=== PATIENT | female | born 1990 | race Caucasian/White ===

== ENCOUNTER 2017-08-31 08:05 | Emergency (ER) | payer BC ==
[~2017-08-31] VITALS: Ht 160 cm; Wt 101.6 kg
[~2017-08-31 08:05] MED LIST: AZIT250T6 PO; MEDR150D3 IM
[2017-08-31 08:15] VITALS: BP 125/55
--- NOTE | 2017-08-31 08:52 | PHYS DOC ---
Past History Past Medical History: No Pertinent History Past Surgical History: Tonsillectomy Smoking: Non-smoker Alcohol Use: None Drug Use: None Adult General Chief Complaint Chief Complaint: SORE THROAT HPI HPI Patient is a 27 year old female who presents with sore throat & nasal congestion. The patient reports 4 day history of symptoms. She reports nasal congestion, rhinorrhea, bilateral ear pain, sore throat, painful swallowing, dry cough. Denies fevers, headache, neck stiffness, chest pain, shortness of breath, abdominal pain, nausea, vomiting. Previously healthy, history of tonsillectomy. Known exposure to strep throat this week. Works as a [employer] LE[employer]. She had a flu vaccine this season. Review of Systems Review of Systems Constitutional: Denies fever or chills Eyes: Denies drainage HENT: Reports nasal congestion & sore throat Respiratory: Reports cough, denies shortness of breath Cardiovascular: Denies chest pain or edema GI: Denies abdominal pain, nausea, vomiting Musculoskeletal: Denies back pain or joint pain Integument: Denies rash Neurologic: Denies headache Allergies Allergies Allergies Coded Allergies Type Severity Reaction Last Updated Verified No Known Drug Allergies 04/06/16 No Physical Exam Physical Exam Constitutional: obese, no acute distress, non-toxic appearance. HENT: Normocephalic, atraumatic, bilateral external ears normal, TMs clear bilaterally, oropharynx moist, posterior oropharynx mild erythema without tonsillar enlargement/exudate, airway patent, nose normal. Eyes: conjunctiva normal, no discharge. Neck: supple, no stridor. no meningismus, no cervical lymphadenopathy. Cardiovascular: RRR, no murmurs, no edema. Lungs & Thorax: LCTAB, no wheezing, no respiratory distress. Abdomen: soft, nontender, nondistended. Skin: Warm, dry, no erythema, no rash. Back: No tenderness. Extremities: No deformity Neurologic: Alert and oriented X 3 EKG EKG [] Radiology/Procedures Radiology/Procedures [] Course & Med Decision Making Course & Med Decision Making Pertinent Labs and Imaging studies reviewed. (See chart for details) The patient presents with upper respiratory illness. Rapid strep was negative. Vitals are stable & patient is well appearing. Recommend supportive care for viral URI. Encourage rest, hydration, tylenol/ibuprofen for pain or fever, throat lozenges, continue mucinex, afrin PRN not to be used more than 2 days. Come back for severe shortness of breath, uncontrolled vomiting, any otherwise worsening condition. Discharged home in stable condition. [] Dragon Disclaimer Dragon Disclaimer This chart was dictated in whole or in part using Voice Recognition software in a busy, high-work load, and often noisy Emergency Department environment. It may contain unintended and wholly unrecognized errors or omissions. Departure Departure: Impression: Primary Impression: Upper respiratory infection Disposition: HOME, SELF-CARE Condition: STABLE Referrals: LAURA SCHULTE (PCP) Patient Instructions: Upper Respiratory Infection, Adult, [id number] Additional Instructions: You were seen in the emergency department today for upper respiratory infection. The rapid strep test was negative. This is likely caused by a virus & there is no specific treatment. Please rest, drink fluids, take tylenol or ibuprofen for pain or fever, use a humidifier, continue mucinex, use throat lozenges for sore throat, try afrin for up to 2 days for nasal congestion. Follow up with primary care doctor if needed. Come back for severe shortness of breath, uncontrolled vomiting, any otherwise worsening condition. FAY GARCIA MD Aug 31, 2017 08:52
== END 2017-08-31 08:58 | disposition home or self-care (01) ==
LOC: ER 08:05
DX: J06.9 Acute upper respiratory infection, unspecified (principal); H92.03 Otalgia, bilateral
CPT/HCPCS: 87070; 87880; 99283

== ENCOUNTER 2017-11-25 15:35 | Emergency (ER) | payer BC, OTHER ==
[~2017-11-25] VITALS: Ht 157.5 cm; Wt 95.3 kg
[2017-11-25] MEDS ORDERED: ONDANSETRON ODT 4 MG TAB.RAPDIS PO ONE (16:15)
[2017-11-25] MEDS ORDERED: PENICILLIN G BENZATHINE LA 1,200,000 UNIT/2 ML DISP.SYRIN. IM ONE (16:30)
[2017-11-25 16:34] LABS: INFLUENZA A PATIENT NEGATIVE (NEGATIVE); INFLUENZA B PATIENT NEGATIVE (NEGATIVE)
[2017-11-25 16:45] VITALS: BP 136/77
--- NOTE | 2017-11-25 17:00 | PHYS DOC ---
Past History Past Medical History: No Pertinent History Past Surgical History: Tonsillectomy Smoking: Non-smoker Alcohol Use: None Drug Use: None Adult General Chief Complaint Chief Complaint: sore throat and fever HPI HPI 27-year-old female patient complaining of sore throat and subjective fever and chills and nasal congestion and body aches for the last 4 days with nausea and dry heaves without diarrhea. Patient denies abdominal pain and urinary symptom. Patient states she has sick contacts at work. Review of Systems Review of Systems Constitutional: As fever and chills Eyes: Denies change in visual acuity, redness, or eye pain [] HENT: Nasal congestion and sore throat] Respiratory: Denies cough or shortness of breath [] Cardiovascular: No additional information not addressed in HPI [] GI: Denies abdominal pain, reports nausea and vomiting Musculoskeletal: Denies back pain or joint pain [] Integument: Denies rash or skin lesions [] Neurologic: Denies headache, focal weakness or sensory changes [] Endocrine: Denies polyuria or polydipsia [] All other systems were reviewed and found to be within normal limits, except as documented in this note. Current Medications Current Medications Current Medications Medications (Trade) Dose Ordered Sig/Bhavana Start Time Stop Time Status Last Admin Dose Admin Ondansetron HCl (Zofran Odt) 4 mg 1X ONCE 11/25/17 16:15 11/25/17 16:16 DC 11/25/17 16:20 4 MG Penicillin G Benzathine (Bicillin L-A) 1,200,000 unit 1X ONCE 11/25/17 16:30 11/25/17 16:31 DC 11/25/17 16:41 1,200,000 UNIT Allergies Allergies Allergies Coded Allergies Type Severity Reaction Last Updated Verified No Known Drug Allergies 04/06/16 No Physical Exam Physical Exam Constitutional: Well developed, well nourished, mild distress, non-toxic appearance. [] HENT: Normocephalic, atraumatic, bilateral external ears normal, pharyngeal erythema and edema and exudate ,oropharynx moist, nose normal. [] Eyes: PERRLA, EOMI, conjunctiva normal, no discharge. [] Neck: Normal range of motion, no tenderness, supple, no stridor. [] Cardiovascular:Heart rate regular rhythm, no murmur [] Lungs & Thorax: Bilateral breath sounds clear to auscultation [] Abdomen: Bowel sounds normal, soft, no tenderness, no masses, no pulsatile masses. [] Skin: Warm, dry, no erythema, no rash. [] Back: No tenderness, no CVA tenderness. [] Extremities: No tenderness, no cyanosis, no clubbing, ROM intact, no edema. [] Neurologic: Alert and oriented X 3, normal motor function, normal sensory function, no focal deficits noted. [] Psychologic: Affect normal, judgement normal, mood normal. [] Current Patient Data Lab Results Laboratory Tests Test 11/25/17 16:00 Influenza Type A (Rapid) Negative (NEGATIVE) Influenza Type B (Rapid) Negative (NEGATIVE) Group A Streptococcus Rapid Positive (NEGATIVE) EKG EKG [] Radiology/Procedures Radiology/Procedures [] Course & Med Decision Making Course & Med Decision Making Pertinent Labs reviewed. (See chart for details) Evaluation of patient in ER showed 27-year-old female patient with complaining of sore throat and upper respiratory symptoms for 4 days. Patient had positive for strep and negative flu test and asking for injection of antibiotic. 1 dose of Bicillin was given and plan to discharge patient home with diagnosis of strep pharyngitis. [] Dragon Disclaimer Dragon Disclaimer This electronic medical record was generated, in whole or in part, using a voice recognition dictation system. Departure Departure: Impression: Primary Impression: Acute streptococcal pharyngitis Disposition: 01 HOME, SELF-CARE (at 1658) Condition: IMPROVED Referrals: LAURA SCHULTE (PCP) Patient Instructions: Strep Throat, Group A Streptococcus Additional Instructions: Take [id number] Tylenol or ibuprofen as needed for fever and pain Drink plenty of liquids Return to emergency room if not getting better GIRMA MARTINEZ MD Nov 25, 2017 17:00
[2017-11-25] MEDS ORDERED: TRAM-48 PO (17:01)
== END 2017-11-25 17:10 | disposition home or self-care (01) ==
LOC: ER 15:35
DX: J02.0 Streptococcal pharyngitis (principal)
CPT/HCPCS: 87804; 87880; 96372; 99284; J0561; Q0162

== ENCOUNTER 2017-12-23 01:32 | Emergency (ER) | payer SELFPAY ==
[~2017-12-23] VITALS: Ht 162.6 cm; Wt 96.2 kg
[2017-12-23 01:32] VITALS: BP 117/69
[~2017-12-23 01:32] MED LIST changes: +TRAM-48 PO
--- NOTE | 2017-12-23 01:39 | PHYS DOC ---
General Chief Complaint: dental pain Stated Complaint: DENTAL PAIN Time Seen by MD: 01:38 Source: patient Exam Limitations: no limitations Problems: History of Present Illness Initial Comments 27-year-old female comes to the ED complaining of dental pain. Patient states that she is known she has a cavity in her left upper molar for some time but she hasn't had any insurance benefits. In the past ibuprofen as helped her through the discomfort however tonight symptoms have become so severe they're preventing her from sleep. She denies any jaw pain or gum swelling no headache fever chills or body aches. Timing/Duration: gradual Severity: severe Location: dental Prearrival Treatment: over the counter meds Modifying Factors: improves with other Associated Symptoms: tooth pain Allergies: Coded Allergies: No Known Drug Allergies (Unverified , 04/06/16) Past Medical History Medical History: no pertinent history Surgical History: tonsillectomy Social History Smoker: non-smoker Alcohol: none Drugs: none Constitutional: denies chills, denies fever, denies malaise Ears: denies dizziness, denies pain, denies tinnitus Nose: denies clots, denies congestion Mouth: see HPI Throat: denies pain, denies swelling, denies discharge, denies neck stiffness Respiratory: denies cough, denies shortness of breath Cardiovascular: denies chest pain, denies palpitations Gastrointestinal: denies nausea, denies vomiting Musculoskeletal: denies back pain, denies joint swelling, denies neck pain Physical Exam General Appearance: no apparent distress Eyes: bilateral eye normal inspection, bilateral eye PERRL, bilateral eye EOMI Nose: normal inspection Mouth/Throat: other (first left upper molar with lateral erosion, no gingival swelling no bony tenderness no discharge) Neck: non-tender, supple Cardiovascular/Respiratory: normal peripheral pulses, no respiratory distress 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 Patient was advised that she must follow-up with a dentist and that dental pain may not be repeatedly treated in the emergency department. Departure Time of Disposition: 01:46 Disposition: 01 HOME, SELF-CARE Diagnosis: dental caries Condition: GOOD Patient Instructions: Dental Caries-Brief Additional Instructions: Listerine gargles 3 times daily after brushing and flossing. [id number] ibuprofen for baseline discomfort. Prescription: Amoxicillin, [place] 5 mg quantity 20 Take medications with food As discussed you must follow-up with a dentist for resolution of this condition , we cannot treat the same condition repeatedly in the emergency department. RN Will give you a list of dental clinics which may benefit you until you get insurance. Call tomorrow to schedule appointment. Return to ED with new or changing symptoms. MARINA YIN DO Dec 23, 2017 01:39
[2017-12-23] MEDS ORDERED: AMOXICILLIN 250 MG CAPSULE PO ONE (01:45)
[2017-12-23] MEDS ORDERED: HYDROcodone/APAP 7.5/325MG 1 TAB TABLET PO ONE (01:45)
[2017-12-23] MEDS ORDERED: AMOX875T PO (01:46)
[2017-12-23] MEDS ORDERED: HYDR-971 PO (01:46)
== END 2017-12-23 01:55 | disposition home or self-care (01) ==
LOC: ER 01:32
DX: K02.9 Dental caries, unspecified (principal)
CPT/HCPCS: 99283

== ENCOUNTER → 2018-11-14 | Outpatient (CLI) | payer OTHER ==
[~2018-11-14] MED LIST changes: +AMOX875T PO; +HYDR-3165 PO
--- NOTE | 2018-11-14 10:48 | RAD ---
Right upper quadrant abdominal ultrasound, 11/14/2018: HISTORY: Right upper quadrant pain The gallbladder is within normal limits in size. There is no sonographic evidence of cholelithiasis. The gallbladder coulter are not thickened. The common hepatic duct is of normal caliber. There is no evidence of a hepatic mass. The hepatic echogenicity is generally increased, most commonly due to fatty change. The liver is at the upper limits of normal in size. The visualized portions of the pancreas and right kidney are unremarkable. IMPRESSION: 1. Increased hepatic echogenicity suggesting fatty change. 2. No gallbladder abnormality is detected. Electronically signed by: David Campo MD (11/14/2018 10:43 AM) [facility]
== END | disposition home or self-care (01) ==
LOC: MERGE 09:23 → US 09:23
PROVIDERS: ATTEND Physician Assistant
DX: R10.11 Right upper quadrant pain (principal)
CPT/HCPCS: 76705

== ENCOUNTER → 2019-01-03 | Outpatient (CLI) | payer OTHER | END | disposition home or self-care (01) | LOC: LAB 17:03 | PROVIDERS: ATTEND Advanced Practice Midwife | DX: N92.6 Irregular menstruation, unspecified (principal); O20.0 Threatened abortion | CPT/HCPCS: 36415; 84144; 84702 ==

== ENCOUNTER 2019-04-18 20:45 | Emergency (ER) | payer OTHER ==
[~2019-04-18] VITALS: Ht 162.6 cm; Wt 100.7 kg
[2019-04-18 20:59] VITALS: BP 121/68
--- NOTE | 2019-04-18 21:05 | ED.ADGEN ---
Past History Past Medical History: No Pertinent History Past Surgical History: Tonsillectomy Smoking: Non-smoker Alcohol Use: None Drug Use: None Adult General Chief Complaint Chief Complaint ".. I fell really hard.. I slipped in the mud.. and fell on my back really hard.. I am not worried about my pain.. but I am 20 weeks ... I had a miscarry with my last .. I am 20 weeks.. and really worried..." HPI HPI Patient is a 28 year old female who presents with above hx and complaints of low back pain and lower pelvic discomfort after a fall from standing position. Patient states she slipped on the blood which was the cause of her fall. Patient is extremely concerned that she may have started miscarriage. Patient has history of 3 para 2 with 1 miscarriage last February. Patient denies history of STDs. On 1 lifetime sex partner. No active bleeding currently. Does have a follow-up with her primary care for ultrasound. Patient has yet has not had an ultrasound of this . Review of Systems Review of Systems Constitutional: Denies fever or chills [] Eyes: Denies change in visual acuity, redness, or eye pain [] HENT: Denies nasal congestion or sore throat [] Respiratory: Denies cough or shortness of breath [] Cardiovascular: No additional information not addressed in HPI [] GI: Complaints of some pelvic abdominal pain, nausea. No, vomiting, bloody stools or diarrhea []no vaginal bleeding. : Denies dysuria or hematuria [] Musculoskeletal: Complains of low back pain or joint pain [] Integument: Denies rash or skin lesions [] Neurologic: Denies headache, focal weakness or sensory changes [] Endocrine: Denies polyuria or polydipsia [] All other systems were reviewed and found to be within normal limits, except as documented in this note. Family History Family History Noncontributory Current Medications Current Medications Current Medications Medications (Trade) Dose Ordered Sig/Bhavana Start Time Stop Time Status Last Admin Dose Admin Lactated Ringer's 1,000 ml @ 1,000 mls/hr Q1H 04/18/19 21:30 04/18/19 22:29 DC 04/18/19 21:56 1,000 MLS/HR Ondansetron HCl (Zofran) 4 mg 1X ONCE 04/18/19 21:30 04/18/19 21:31 DC Allergies Allergies Allergies Coded Allergies Type Severity Reaction Last Updated Verified No Known Drug Allergies 04/06/16 No Physical Exam Physical Exam Constitutional: Moderate acute emotional distress, non-toxic appearance. [] HENT: Normocephalic, atraumatic, bilateral external ears normal, oropharynx moist, no oral exudates, nose normal. [] Eyes: PERRLA, EOMI, conjunctiva normal, no discharge. [] Neck: Normal range of motion, no tenderness, supple, no stridor. [] Cardiovascular:Heart rate regular rhythm, no murmur [] Lungs & Thorax: Bilateral breath sounds equal apex auscultation [] Abdomen: Bowel sounds normal, soft, lower pelvic disc comfort or tenderness, gravid, no masses, no pulsatile masses. [] Vaginal exam office is closed. No active bleeding. No cervical motion tenderness. Rectal hard stool. heart rate at 150s Skin: Warm, dry, no erythema, no rash. [] Back: No tenderness, no CVA tenderness. [] Extremities: No tenderness, no cyanosis, no clubbing, ROM intact, no edema. [] Neurologic: Alert and oriented X 3, normal motor function, normal sensory function, no focal deficits noted. [] Psychologic: Affect anxious, judgement normal, mood normal. [] Current Patient Data Vital Signs Vital Signs Date Time Temp Pulse Resp B/P (MAP) Pulse Ox O2 Delivery O2 Flow Rate FiO2 04/18/19 20:59 98.7 90 16 98 Room Air Lab Results Laboratory Tests Test 04/18/19 21:25 04/18/19 21:45 Urine Collection Type Unknown Urine Color Yellow Urine Clarity Hazy Urine pH 6.5 Urine Specific [place] 1.020 Urine Protein Neg (NEG-TRACE) Urine Glucose (UA) Neg mg/dL (NEG) Urine Ketones (Stick) Trace mg/dL (NEG) Urine Blood Neg (NEG) Urine Nitrite Neg (NEG) Urine Bilirubin Neg (NEG) Urine Urobilinogen Dipstick 1 mg/dL (0.2 mg/dL) Urine Leukocyte Esterase Neg (NEG) Urine RBC 0 /HPF (0-2) Urine WBC Occ /HPF (0-4) Urine Squamous Epithelial Cells Occ /LPF Urine Bacteria 0 /HPF (0-FEW) Urine Mucus Slight /LPF Urine Opiates Screen Neg (NEG) Urine Methadone Screen Neg (NEG) Urine Barbiturates Neg (NEG) Urine Phencyclidine Screen Neg (NEG) Urine Amphetamine/Methamphetamine Neg (NEG) Urine Benzodiazepines Screen Neg (NEG) Urine Cocaine Screen Neg (NEG) Urine Cannabinoids Screen Neg (NEG) Urine Ethyl Alcohol Neg (NEG) White Blood Count 11.4 x10^3/uL (4.0-11.0) H Red Blood Count 3.82 x10^6/uL (3.50-5.40) Hemoglobin 12.0 g/dL (12.0-15.5) Hematocrit 35.0 % (36.0-47.0) L Mean Corpuscular Volume 92 fL (79-100) Mean Corpuscular Hemoglobin 31 pg (25-35) Mean Corpuscular Hemoglobin Concent 34 g/dL (31-37) Red Cell Distribution Width 13.0 % (11.5-14.5) Platelet Count 247 x10^3/uL (140-400) Neutrophils (%) (Auto) 75 % (31-73) H Lymphocytes (%) (Auto) 19 % (24-48) L Monocytes (%) (Auto) 6 % (0-9) Eosinophils (%) (Auto) 0 % (0-3) Basophils (%) (Auto) 1 % (0-3) Neutrophils # (Auto) 8.5 x10^3uL (1.8-7.7) H Lymphocytes # (Auto) 2.1 x10^3/uL (1.0-4.8) Monocytes # (Auto) 0.7 x10^3/uL (0.0-1.1) Eosinophils # (Auto) 0.1 x10^3/uL (0.0-0.7) Basophils # (Auto) 0.1 x10^3/uL (0.0-0.2) Prothrombin Time 9.3 SEC (9.4-11.4) L Prothrombin Time INR 0.9 (0.9-1.1) PTT 28 SEC (23-33) Maternal Serum HCG Beta Subunit 07702 mIU/mL (0-6) H Sodium Level 139 mmol/L (136-145) Potassium Level 3.5 mmol/L (3.5-5.1) Chloride Level 105 mmol/L (98-107) Carbon Dioxide Level 23 mmol/L (21-32) Anion Gap 11 (6-14) Blood Urea Nitrogen 5 mg/dL (7-20) L Creatinine 0.5 mg/dL (0.6-1.0) L Estimated GFR (Cockcroft-Gault) 148.0 Glucose Level 82 mg/dL (70-99) Calcium Level 9.2 mg/dL (8.5-10.1) Total Bilirubin 0.2 mg/dL (0.2-1.0) Direct Bilirubin < 0.1 mg/dL (0.0-0.2) Aspartate Amino Transferase (AST) 13 U/L (15-37) L Alanine Aminotransferase (ALT) 21 U/L (14-59) Alkaline Phosphatase 58 U/L (46-116) Total Protein 6.7 g/dL (6.4-8.2) Albumin 2.9 g/dL (3.4-5.0) L Lipase 128 U/L (73-393) Microbiology 04/18/19 Wet Prep - Final, Complete Microbiology 04/18/19 Wet Prep - Final, Complete EKG EKG [] Radiology/Procedures Radiology/Procedures [][place] [address] IMAGING REPORT Signed PATIENT: ROSSY MARTI ACCOUNT: [id number] : 1990 LOCATION: ER AGE: 28 SEX: F EXAM STATUS: REG ER ORD. PHYSICIAN: ABIOLA PATRICK MD REASON: 20 WEEKS , FELL ON BACK, BACK PAIN PROCEDURE: PREG MORE THAN OR EQ TO 14 WKS Clinical indications: 20 weeks . Fell on back. Back pain. Findings: A single intrauterine fetus is seen in transverse position. heart rate is 147 beats per minute. BPD is 4.75 cm which equals 20 weeks 3 days. HC is 17.30 cm which equals 19 weeks 6 days. AC is 15.02 cm which equals 20 weeks 2 days. FL is 3.28 cm which equals 20 weeks 2 days. Average gestational age by ultrasound is 20 weeks 2 days +/- +/- 12 days with an EDC of September 03, 2019. Estimated weight is 0 lbs and 12 oz. The anatomy was not evaluated. A normal amount of amniotic fluid is evident. Cervical length is 8.6 cm. A grade 0 anterior placenta is seen. No placenta previa and no placenta abruptio is identified. The maternal ovaries are not visualized. Impression: Single IUP with approximate gestational age of 20 weeks 2 days. heart rate is 147 bpm. Electronically signed by: China Moore MD (04/18/2019 10:37 PM) [facility] DICTATED AND SIGNED BY: CHINA MOORE MD DATE: 04/18/192236 CC: ABIOLA PATRICK MD; LAURA SCHULTE ~ Course & Med Decision Making Course & Med Decision Making Pertinent Labs and Imaging studies reviewed. (See chart for details) Patient follow-up primary care. Patient have CAPTAIN ASSISTANT review all ultrasound completed tonight. Patient push fluids. Patient may take only Tylenol for discomfort. Patient return if any concerns. [] Final Impression Final Impression 1. Fall[] 2. IUP- 20w 2 days 3. Blood type is A+ 4. Beta hCG is 16,182 Dragon Disclaimer Dragon Disclaimer This electronic medical record was generated, in whole or in part, using a voice recognition dictation system. Discharge Summary Visit Information Final Diagnosis Problems Medical Problems: (1) Fall Status: Acute (2) Intrauterine Status: Acute Brief Hospital Course Allergies Allergies Coded Allergies Type Severity Reaction Last Updated Verified No Known Drug Allergies 04/06/16 No Vital Signs Vital Signs Date Time Temp Pulse Resp B/P (MAP) Pulse Ox O2 Delivery O2 Flow Rate FiO2 04/18/19 20:59 98.7 90 16 98 Room Air Lab Results Laboratory Tests Test 04/18/19 21:25 04/18/19 21:45 Urine Collection Type Unknown Urine Color Yellow Urine Clarity Hazy Urine pH 6.5 Urine Specific [place] 1.020 Urine Protein Neg (NEG-TRACE) Urine Glucose (UA) Neg mg/dL (NEG) Urine Ketones (Stick) Trace mg/dL (NEG) Urine Blood Neg (NEG) Urine Nitrite Neg (NEG) Urine Bilirubin Neg (NEG) Urine Urobilinogen Dipstick 1 mg/dL (0.2 mg/dL) Urine Leukocyte Esterase Neg (NEG) Urine RBC 0 /HPF (0-2) Urine WBC Occ /HPF (0-4) Urine Squamous Epithelial Cells Occ /LPF Urine Bacteria 0 /HPF (0-FEW) Urine Mucus Slight /LPF Urine Opiates Screen Neg (NEG) Urine Methadone Screen Neg (NEG) Urine Barbiturates Neg (NEG) Urine Phencyclidine Screen Neg (NEG) Urine Amphetamine/Methamphetamine Neg (NEG) Urine Benzodiazepines Screen Neg (NEG) Urine Cocaine Screen Neg (NEG) Urine Cannabinoids Screen Neg (NEG) Urine Ethyl Alcohol Neg (NEG) White Blood Count 11.4 x10^3/uL (4.0-11.0) Red Blood Count 3.82 x10^6/uL (3.50-5.40) Hemoglobin 12.0 g/dL (12.0-15.5) Hematocrit 35.0 % (36.0-47.0) Mean Corpuscular Volume 92 fL (79-100) Mean Corpuscular Hemoglobin 31 pg (25-35) Mean Corpuscular Hemoglobin Concent 34 g/dL (31-37) Red Cell Distribution Width 13.0 % (11.5-14.5) Platelet Count 247 x10^3/uL (140-400) Neutrophils (%) (Auto) 75 % (31-73) Lymphocytes (%) (Auto) 19 % (24-48) Monocytes (%) (Auto) 6 % (0-9) Eosinophils (%) (Auto) 0 % (0-3) Basophils (%) (Auto) 1 % (0-3) Neutrophils # (Auto) 8.5 x10^3uL (1.8-7.7) Lymphocytes # (Auto) 2.1 x10^3/uL (1.0-4.8) Monocytes # (Auto) 0.7 x10^3/uL (0.0-1.1) Eosinophils # (Auto) 0.1 x10^3/uL (0.0-0.7) Basophils # (Auto) 0.1 x10^3/uL (0.0-0.2) Prothrombin Time 9.3 SEC (9.4-11.4) Prothromb Time International Ratio 0.9 (0.9-1.1) Activated Partial Thromboplast Time 28 SEC (23-33) Maternal Serum HCG Beta Subunit 41082 mIU/mL (0-6) Sodium Level 139 mmol/L (136-145) Potassium Level 3.5 mmol/L (3.5-5.1) Chloride Level 105 mmol/L (98-107) Carbon Dioxide Level 23 mmol/L (21-32) Anion Gap 11 (6-14) Blood Urea Nitrogen 5 mg/dL (7-20) Creatinine 0.5 mg/dL (0.6-1.0) Estimated GFR (Cockcroft-Gault) 148.0 Glucose Level 82 mg/dL (70-99) Calcium Level 9.2 mg/dL (8.5-10.1) Total Bilirubin 0.2 mg/dL (0.2-1.0) Direct Bilirubin < 0.1 mg/dL (0.0-0.2) Aspartate Amino Transf (AST/SGOT) 13 U/L (15-37) Alanine Aminotransferase (ALT/SGPT) 21 U/L (14-59) Alkaline Phosphatase 58 U/L (46-116) Total Protein 6.7 g/dL (6.4-8.2) Albumin 2.9 g/dL (3.4-5.0) Lipase 128 U/L (73-393) Brief Hospital Course Ms. Marti is a 28 old female who presented with IUP 20w2 days with pelvic and back discomfort after fall. Discharge Information Condition at Discharge: Improved, Stable Disposition/Orders: D/C to Home Dischare Medications Current Medications Lactated Ringer's 1,000 ml @ 1,000 mls/hr Q1H IV Last administered on 04/18at 21:56; Admin Dose 1,000 MLS/HR; Start 04/18/19 at 21:30; Stop 04/18/19 at 22:29; Status DC Ondansetron HCl (Zofran) 4 mg 1X ONCE IV ; Start 04/18/19 at 21:30; Stop 04/18/19 at 21:31; Status DC Active Scripts Active [place] 5-325 Tablet (Hydrocodone Bit/Acetaminophen) 1 Each Tablet 1 Tab PO PRN Q6HRS PRN Amoxicillin 875 Mg Tablet 1 Tab PO BID Ultram (Tramadol HCl) 50 Mg Tablet 50 Mg PO PRN Q6HRS PRN Azithromycin Tablet (Azithromycin) 250 Mg Tablet 1 Pkg PO UD Reported No Known Medications Prior To Admisstion (Info) Each 1 Each Dragon Disclaimer This chart was dictated in whole or in part using Voice Recognition software in a busy, high-work load, and often noisy Emergency Department environment. It may contain unintended and wholly unrecognized errors or omissions. ABIOLA PATRICK MD Apr 18, 2019 21:05
[2019-04-18] MEDS ORDERED: ONDANSETRON PF 4 MG/2 ML VIAL. IV ONE (21:30)
[2019-04-18] MEDS ORDERED: IV RINGERS SOLUTION,LACTATED 1,000 ML IV SCH (21:30)
[2019-04-18 21:57] LABS: BARBITURATES NEG (NEG); BENZODIAZEPINES NEG (NEG); CANNABINOIDS NEG (NEG); COCAINE NEG (NEG); METHADONE NEG (NEG); OPIATES NEG (NEG); PHENCYCLIDINE NEG (NEG)
[2019-04-18 21:58] LABS: AMPHETAMINE/METHAMPHETAMINE NEG (NEG)
[2019-04-18 22:02] LABS: BASO # 0.1 x10^3/uL (0.0-0.2); BASO % 1 % (0-3); EOS # 0.1 x10^3/uL (0.0-0.7); EOS % 0 % (0-3); LYMPH # 2.1 x10^3/uL (1.0-4.8); LYMPH % 19 % (24-48); MEAN CORPUSCULAR HEMOGLOBIN 31 pg (25-35); MEAN CORPUSCULAR HGB CONC 34 g/dL (31-37); MEAN CORPUSCULAR VOLUME 92 fL (79-100); MONO # 0.7 x10^3/uL (0.0-1.1); MONO % 6 % (0-9); NEUT # 8.5 x10^3uL (1.8-7.7); NEUT % 75 % (31-73); PLATELET COUNT 247 x10^3/uL (140-400); RED BLOOD COUNT 3.82 x10^6/uL (3.50-5.40); WHITE BLOOD COUNT 11.4 x10^3/uL (4.0-11.0)
[2019-04-18 22:15] LABS: BACTERIA,URINE 0 /HPF (0-FEW); BILIRUBIN,URINE NEG (NEG); CLARITY,URINE HAZY; COLOR,URINE YELLOW; GLUCOSE,URINE NEG (NEG); NITRITE,URINE NEG (NEG); RBC,URINE 0 /HPF (0-2); SQUAMOUS EPITHELIAL CELL,UR OCC /LPF; UROBILINOGEN,URINE 1 mg/dL (0.2 mg/dL); WBC,URINE OCC /HPF (0-4)
[2019-04-18 22:29] LABS: SODIUM 139 mmol/L (136-145)
--- NOTE | 2019-04-18 22:40 | RAD ---
Clinical indications: 20 weeks . Fell on back. Back pain. Findings: A single intrauterine fetus is seen in transverse position. heart rate is 147 beats per minute. BPD is 4.75 cm which equals 20 weeks 3 days. HC is 17.30 cm which equals 19 weeks 6 days. AC is 15.02 cm which equals 20 weeks 2 days. FL is 3.28 cm which equals 20 weeks 2 days. Average gestational age by ultrasound is 20 weeks 2 days +/- +/- 12 days with an EDC of September 03, 2019. Estimated weight is 0 lbs and 12 oz. The anatomy was not evaluated. A normal amount of amniotic fluid is evident. Cervical length is 8.6 cm. A grade 0 anterior placenta is seen. No placenta previa and no placenta abruptio is identified. The maternal ovaries are not visualized. Impression: Single IUP with approximate gestational age of 20 weeks 2 days. heart rate is 147 bpm. Electronically signed by: Paul Moore MD (04/18/2019 10:37 PM) [id number]
[2019-04-18 22:55] LABS: ALBUMIN 2.9 g/dL (3.4-5.0); ALK PHOS 58 U/L (46-116); ALT (SGPT) 21 U/L (14-59); ANION GAP 11 (6-14); AST (SGOT) 13 U/L (15-37); BLOOD UREA NITROGEN 5 mg/dL (7-20); CALCIUM 9.2 mg/dL (8.5-10.1); CARBON DIOXIDE 23 mmol/L (21-32); CHLORIDE 105 mmol/L (98-107); CREATININE 0.5 mg/dL (0.6-1.0); GLUCOSE 82 mg/dL (70-99); LIPASE 128 U/L (73-393); POTASSIUM 3.5 mmol/L (3.5-5.1); TOTAL BILIRUBIN 0.2 mg/dL (0.2-1.0); TOTAL PROTEIN 6.7 g/dL (6.4-8.2)
[2019-04-18 22:56] LABS: DIRECT BILIRUBIN < 0.1 mg/dL (0.0-0.2)
[2019-04-20 16:06] LABS: CHLAMYDIA PROBE Negative (Negative)
== END 2019-04-19 01:25 | disposition home or self-care (01) ==
LOC: ER 20:45
DX: O9A.212 Injury, poisoning and certain other consequences of external causes complicating pregnancy, second trimester (principal); R10.2 Pelvic and perineal pain; M54.5 Low back pain; Z3A.20 20 weeks gestation of pregnancy; Z79.2 Long term (current) use of antibiotics; Z79.891 Long term (current) use of opiate analgesic; Z79.899 Other long term (current) drug therapy; W01.0XXA Fall on same level from slipping, tripping and stumbling without subsequent striking against object, initial encounter; Y93.89 Activity, other specified; Y92.89 Other specified places as the place of occurrence of the external cause; Y99.8 Other external cause status
CPT/HCPCS: 36415; 76805; 80048; 80076; 80307; 81001; 83690; 84443; 84702; 85025; 85610; 85730; 86900; 86901; 87491; 87591; 99285; J7120; Q0111